=== PATIENT | female | born 1965 | race Caucasian/White ===

== ENCOUNTER → 2016-11-04 | Outpatient (CLI) | payer OTHER ==
[2016-11-04 15:31] LABS: HEMOGLOBIN 15.2 g/dL (12.2-16.2); LYMPH # 2.6 K/mm3 (0.7-4.5); LYMPH % 24.9 % (10-50.0)
[2016-11-04 18:29] LABS: BUN 7 mg/dL (7-18)
[2016-11-04 18:30] LABS: GFR (ESTIMATED) 89 ML/MIN (59-)
== END ==
LOC: LAB 15:17
PROVIDERS: Surgery
DX: Z01.812 Encounter for preprocedural laboratory examination (principal); Z01.810 Encounter for preprocedural cardiovascular examination